=== PATIENT | male | born 1940 | race Caucasian/White ===

== ENCOUNTER 2018-10-19 09:31 | Emergency (ER) | payer OTHER ==
--- NOTE | 2018-10-19 10:01 | EDPHY ---
H & P Stated Complaint: Head injury 10/15/18, now feels dizzy. Time Seen by Provider: 10/19/18 09:48 HPI/ROS: CHIEF COMPLAINT: Vertigo HISTORY OF PRESENT ILLNESS: The patient presents to the ED with complaints of vertigo that is been present since a head and neck injury at yoga last week. The patient reportedly fell backwards and sustained a twisting injury to his neck. Since that time he has had intermittent vertigo which is precipitated by any movement of his head to the right. The patient denies significant headache. The patient is not anticoagulated. The patient denies any peripheral numbness or weakness. The patient states that his symptoms are moderate to severe in nature. He denies additional acute complaints. REVIEW OF SYSTEMS: A comprehensive 10 point review of systems is otherwise negative aside from elements mentioned in the history of present illness. Source: Patient Exam Limitations: No limitations - Personal History Current Tetanus Diphtheria and Acellular Pertussis (TDAP): Yes - Medical/Surgical History Hx Asthma: No Hx Chronic Respiratory Disease: No Hx Diabetes: No Hx Cardiac Disease: No Hx Renal Disease: No Hx Cirrhosis: No Hx Alcoholism: No Hx HIV/AIDS: No Hx Splenectomy or Spleen Trauma: No Other PMH: HTN. Left knee replacement. - Social History Smoking Status: Never smoked - Physical Exam Exam: General Appearance: Alert, no distress Eyes: Pupils equal and round no pallor or injection ENT, Mouth: Mucous membranes moist Respiratory: There are no retractions, lungs are clear to auscultation Cardiovascular: Regular rate and rhythm Gastrointestinal: Abdomen is soft and nontender, no masses, bowel sounds normal Neurological: Horizontal nystagmus noted with rightward gaze, 5/5 strength all 4 extremities, sensation intact to light touch Skin: Warm and dry, no rashes Musculoskeletal: Neck is supple nontender Extremities: symmetrical, full range of motion Constitutional: Initial Vital Signs Temperature (C) 36.8 C 10/19/18 09:35 Heart Rate 76 10/19/18 09:35 Respiratory Rate 16 10/19/18 09:35 Blood Pressure 162/91 H 10/19/18 09:35 O2 Sat (%) 97 10/19/18 09:35 O2 Delivery Mode Room Air Allergies/Adverse Reactions: No Known Allergies Allergy (Unverified 10/19/18 09:57) Home Medications: Medication Instructions Recorded Amlodipine Besylate 10/19/18 Atorvastatin Calcium 10/19/18 Meclizine HCl [Meclizine HCl 25 mg 25 mg PO BID PRN #20 tab 10/19/18 (RX,OTC)] Ondansetron Odt [Zofran Odt] 4 mg PO Q4PRN PRN #20 tab 10/19/18 Prilosec 10/19/18 Medical Decision Making - Diagnostics Imaging Results: Imaging Impressions Cervical Spine CT 10/19/18 09:55 Impression: 1. No definite fracture. 2. Severe cervical spondylosis secondary to degenerative disk disease and facet arthropathy from C4-C5 through C6-C7 resulting in moderate to severe central canal stenosis, worse at C5-C6, and moderate to severe bilateral neural foraminal stenosis. 3. Consider additional MRI of the cervical spine if clinically indicated. Findings and recommendations discussed with Emergency Department physician, Rodri Mendez at 1110 hour, 10/19/2018. Final report concurs with initial preliminary interpretation. Head CT 10/19/18 09:55 Impression: 1. Mild atrophy. 2. No acute hemorrhage, hydrocephalus, or mass effect. 3. Cerebrovascular atherosclerosis. 4. No definite acute infarct. 5. Mild microvascular ischemic gliosis. 6. Consider MRI of the brain, if there is continued clinical concern. Findings and recommendations discussed with Emergency Department physician, Rodri Mendez, on 10/19/2018. Final report concurs with initial preliminary interpretation. Neck CTA 10/19/18 09:59 Impression: 1. Mild atherosclerotic disease bilateral carotid bulbs without significant stenosis. 2. Mild atherosclerotic disease proximal bilateral subclavian arteries without complete occlusion. 3. Patent bilateral vertebral arteries without dissection, flow-limiting stenosis or occlusion. 4. Cerebrovascular atherosclerosis. Findings and recommendations discussed with Emergency Department physician, Rodri Mendez at 11:15 hour, 10/19/2018. Final report concurs with initial preliminary interpretation. Measurement of carotid stenosis is based on the residual internal carotid diameter with [place] Symptomatic Carotid Endarterectomy Trial (NASCET) based stenosis levels. ED Course/Re-evaluation: The patient presents to the ED for evaluation of vertigo which is fairly typical for benign positional vertigo. The patient did have a history of having a neck injury and head injury while at yoga. Based upon this additional imaging studies were obtained including a CT angiogram of the neck to evaluate for dissection and a CT scan of the brain. The patient does have a history of some chronic neck discomfort and CT scan of the neck was also performed. The patient was treated with meclizine and Zofran in the emergency department. I did attempt the Nelida maneuver with limited success. Angiographic studies of the neck demonstrate no evidence of a dissection. CT scan of the neck demonstrates no evidence of fracture and a CT scan of the brain demonstrates no evidence of intracranial hemorrhage. The patient will be discharged home with a prescription for meclizine and Zofran. He is referred to our on-call Ear Nose Throat physician for any ongoing symptoms of vertigo. I re-evaluated the patient 1:00 p.m.. He is comfortable going home. Aside from positional vertigo his neurologic examination is unremarkable. Differential Diagnosis: Differential diagnosis considered includes central vertigo, vertebral artery dissection, neck fracture, stroke, benign positional vertigo - Data Points Laboratory Results: 10/19/18 10:10 POC Hgb 15.6 gm/dL gm/dL (13.7-17.5) POC Hct 46 % % (40-51) POC Sodium 143 mEq/L mEq/L (135-145) POC Potassium 3.8 mEq/L mEq/L (3.3-5.0) POC Chloride 103 mEq/L mEq/L (97-110) POC BUN 15 mg/dL mg/dL (7-23) POC Creatinine 0.9 mg/dL mg/dL (0.7-1.3) POC Glucose 102 mg/dL H mg/dL (70-100) Medications Given: Discontinued Medications Meclizine HCl (Meclizine Hcl) 25 mg PO EDNOW ONE Stop: 10/19/18 11:20 Last Admin: 10/19/18 11:25 Dose: 25 mg Ondansetron HCl (Zofran) 4 mg IVP EDNOW ONE Stop: 10/19/18 11:21 Last Admin: 10/19/18 11:25 Dose: 4 mg Point of Care Test Results: Chemistry 10/19/18 10:10 POC Sodium 143 mEq/L mEq/L (135-145) POC Potassium 3.8 mEq/L mEq/L (3.3-5.0) POC Chloride 103 mEq/L mEq/L (97-110) POC BUN 15 mg/dL mg/dL (7-23) POC Creatinine 0.9 mg/dL mg/dL (0.7-1.3) POC Glucose 102 mg/dL H mg/dL (70-100) ISTAT H&H 10/19/18 10:10 POC Hgb 15.6 gm/dL gm/dL (13.7-17.5) POC Hct 46 % % (40-51) Departure - Departure Disposition: Home, Routine, Self-Care Clinical Impression: Vertigo Condition: Good Instructions: Vertigo (ED) Additional Instructions: 1. Meclizine as needed for dizziness 2. Zofran as needed for nausea 3. Please follow up with the Ear Nose Throat physician you have been referred to for any unimproved symptoms. 4. Please review the "Nelida" maneuver on line as this may help your symptoms of positional vertigo. Referrals: Abdirahman Stacy MD [Primary Care Provider] - As per Instructions Julien Lovett MD [Medical Doctor] - As per Instructions Prescriptions: Meclizine HCl [Meclizine HCl 25 mg (RX,OTC)] 25 mg PO BID PRN #20 tab PRN Reason: for dizzyness Ondansetron Odt [Zofran Odt] 4 mg PO Q4PRN PRN #20 tab PRN Reason: For Nausea
[2018-10-19] MEDS ORDERED: IOPAMIDOL (ISOVUE 370) 100 ML BTL IV ONE (10:21)
[2018-10-19] MEDS ORDERED: MECLIZINE HCL 25 MG TAB PO ONE (11:19)
[2018-10-19] MEDS ORDERED: ONDANSETRON 4 MG/2 ML VIAL IVP ONE (11:20)
[2018-10-19 13:21] VITALS: BP 145/96
== END 2018-10-19 13:19 | disposition home or self-care (01) ==
DX: R42 Dizziness and giddiness (principal); I10 Essential (primary) hypertension; M47.892 Other spondylosis, cervical region; M53.82 Other specified dorsopathies, cervical region; M48.02 Spinal stenosis, cervical region; I65.23 Occlusion and stenosis of bilateral carotid arteries; I70.8 Atherosclerosis of other arteries; I67.2 Cerebral atherosclerosis
CPT/HCPCS: 70450; 70498; 72125; 96374; 99285; J2405; Q9967; 82435-PO; 82565-PO; 82947-PO; 84132-PO; 84295-PO; 84520-PO; 85014-PO